=== PATIENT | male | born 1995 | race Caucasian/White ===

== ENCOUNTER 2021-09-15 12:33 | Emergency (ER) | payer SELFPAY ==
[~2021-09-15] VITALS: Ht 177.8 cm; Wt 81.7 kg
[2021-09-15] MEDS ORDERED: DOXY100 PO (15:03)
[2021-09-15 15:08] LABS: Source, Urine Clean Catch
[2021-09-15 15:15] LABS: Appearance, Urine Clear (Clear); Bilirubin, Urine Neg (Neg); Blood, Urine Neg (Neg); Color, Urine Yellow (P-Yellow); Glucose Qualitative, Urine Neg (Neg); Ketones, Urine Neg (Neg); Leukocyte Esterase, Urine Neg (Neg); Nitrite, Urine Neg (Neg); Protein, Urine Neg (Neg); Urobilinogen, Urine NORM (Normal)
== END 2021-09-15 15:34 | disposition home or self-care (01) ==
LOC: ER 12:33
PROVIDERS: Physician Assistant
DX: N45.1 Epididymitis (principal)
CPT/HCPCS: 76870; 81003; 96372; 99284-25; A9270; J0696; J1885